=== PATIENT | female | born 1970 | race African-American/Black ===

== ENCOUNTER 2018-04-07 16:08 | Emergency (ER) | payer OTHER ==
[~2018-04-07] VITALS: Ht 170.2 cm; Wt 93.0 kg
[~2018-04-07 16:08] MED LIST: ADVIL LIQUI-GE200 MG PO; CARISOPRODOL 3350 MG PO; CIPRO250 M1 PO; FLEXERIL PO; HCTZ; IBUPROFEN 800800 MG PO; IRON325 PO; LABETALOL 100100 MG PO; LISINOPRIL-HCT1 EACH PO; LISINOPRIL10 MG PO; MEDROL DOSPAK21 TA1 PO; NORCO 5-325 TA1 EACH PO; NORVASC 5 MG TAB5 MG PO; PHENERGAN 25 MG25 M1 PO; PREDNISONE50 MG PO; PRINIVIL; RELAFEN500 MG PO; ULTRACET TABLE1 EACH PO; ULTRAM 50MG TAB50 MG PO; VENTOLIN HFA INH8 GM
[2018-04-07] MEDS ORDERED: COREG25 M1 PO (16:14)
[2018-04-07] MEDS ORDERED: ACETAMINOPHEN-1 EAC1 PO (17:24)
[2018-04-07] MEDS ORDERED: ROBAXIN 750 MG750 M1 PO (17:24)
[2018-04-07] MEDS ORDERED: IBUPROFEN 800800 M1 PO (17:24)
[2018-04-07 17:35] VITALS: BP 200/101
== END 2018-04-07 17:36 | disposition home or self-care (01) ==
LOC: M.ERS 16:08
DX: S16.1XXA Strain of muscle, fascia and tendon at neck level, initial encounter (principal); M54.5 Low back pain; R07.81 Pleurodynia; I10 Essential (primary) hypertension; J45.909 Unspecified asthma, uncomplicated; G89.29 Other chronic pain; Z87.891 Personal history of nicotine dependence; Z88.8 Allergy status to other drugs, medicaments and biological substances; V59.40XA Driver of pick-up truck or van injured in collision with unspecified motor vehicles in traffic accident, initial encounter; Y93.89 Activity, other specified; Y92.89 Other specified places as the place of occurrence of the external cause; Y99.8 Other external cause status

== ENCOUNTER 2018-04-14 11:18 | Emergency (ER) | payer OTHER ==
[~2018-04-14] VITALS: Ht 170.2 cm; Wt 93.0 kg
[~2018-04-14 11:18] MED LIST changes: +ACETAMINOPHEN-1 EAC1 PO; +COREG25 M1 PO; +IBUPROFEN 800800 M1 PO; +ROBAXIN 750 MG750 M1 PO
[2018-04-14] MEDS ORDERED: NORCO 5-325 TA1 EACH PO (13:38)
[2018-04-14] MEDS ORDERED: ROBAXIN 750 MG750 M1 PO (13:38)
[2018-04-14] MEDS ORDERED: IBUPROFEN 800800 M1 PO (13:53)
[2018-04-14 13:55] VITALS: BP 209/110
== END 2018-04-14 13:55 | disposition home or self-care (01) ==
LOC: M.ERS 11:18
DX: S20.212A Contusion of left front wall of thorax, initial encounter (principal); S20.211A Contusion of right front wall of thorax, initial encounter; S63.501A Unspecified sprain of right wrist, initial encounter; M25.511 Pain in right shoulder; I10 Essential (primary) hypertension; J45.909 Unspecified asthma, uncomplicated; V89.2XXA Person injured in unspecified motor-vehicle accident, traffic, initial encounter; Y93.89 Activity, other specified; Y92.89 Other specified places as the place of occurrence of the external cause; Y99.8 Other external cause status